=== PATIENT | female | born 1950 | race Caucasian/White ===

== ENCOUNTER 2016-09-14 15:00 | Inpatient (IN) | payer MEDICARE, BC ==
[~2016-09-14] VITALS: Ht 157.5 cm; Wt 129.1 kg
--- NOTE | ~2016-09-14 | DS ---
PATIENT'S NAME: GLENDALEMAHESHHY Kavon [facility] AGE: 65 Y [address] ROOM: [place] [id number] LOCATION: [facility] ADMIT DATE: 09/26/2016 Discharge Summary DISCHARGE DATE: 09/28/2016 FAMILY PHYSICIAN: Juan Manuel Garrett MD ATTENDING PHYSICIAN: aTlib Melchor PRIMARY DIAGNOSIS: Degenerative joint disease of the left knee. SECONDARY DIAGNOSES: 1. Asthma. 2. Chronic bronchitis. 3. Chronic venous insufficiency. 4. Diabetes mellitus type 2. 5. Hypertension. 6. Hyperlipidemia. 7. Chronic kidney disease, stage 3. 8. History of breast cancer. PROCEDURE PERFORMED: Left total knee arthroplasty. HISTORY: The patient is a 65-year-old female, who presents with advanced left knee degenerative joint disease and associated severely compromised activities of daily living. The patient has decided to proceed with total knee arthroplasty after having been thoroughly counseled regarding the risks, benefits, limitations, and alternatives. Please refer to the outpatient clinic notes and admission history and physical for this patient. HOSPITAL COURSE: The patient underwent a left total knee arthroplasty on 09/26/2016 without complications. Spinal anesthesia plus adductor canal block plus periarticular local anesthesia was utilized. The patient received 24 hours of perioperative prophylactic antibiotics and remained hemodynamically stable, neurovascularly intact throughout the entire hospital course. The postoperative prophylactic deep venous thrombosis prophylaxis consisted of Xarelto, early mobilization, and pneumatic compression devices. Daily physical therapy for gait training, transfer training, range of motion and quadriceps isometric exercises were received. The patient progressed well in physical therapy. On the date of discharge, 09/28/2016, the incision at the knee was healing well and showed no signs of infection. DISPOSITION: Home. DISCHARGE ACTIVITY: The patient is to bear weight as tolerated with range of motion and quadriceps isometric exercises as instructed. She is to hold ROM until her follow-up appointment. The operative extremity is to be elevated at least 90% of the day. There is to be sterile 4x4 gauze dressings to the incision daily. Dr. Melchor is to be notified PATIENT'S NAME: GLENDALEMAHESHHY Kavon [facility] AGE: 65 Y [address] ROOM: [address] [address] LOCATION: [facility] ADMIT DATE: 09/26/2016 Discharge Summary DISCHARGE DATE: 09/28/2016 FAMILY PHYSICIAN: Juan Manuel Garrett MD ATTENDING PHYSICIAN: Talib Melchor if there is any increased pain, fevers, chills, erythema, or drainage. DISCHARGE MEDICATIONS: 1. Xarelto 10 mg 1 tablet p.o. daily for 12 days for postoperative DVT prophylaxis. 2. Hydromorphone 2 mg 1 to 2 tablets p.o. every 4 hours p.r.n. for pain. The patient was then instructed to continue all her other preadmission medications as instructed by her Internal Medicine doctor. FOLLOWUP: Followup appointment is to be 10/03/[address] Melchor's office for her initial postoperative evaluation with x-rays of her knee at that time. EZEQUIEL UPTON PA-C FOR TALIB MELCHOR MD SMW/modl /[id number] d: 10/04/16 0242 t: 10/23/16 2140, DISCHARGE SUMMARY
--- NOTE | ~2016-09-14 | OR ---
PATIENT'S NAME: MAHESH KIMBROUGHHY Kavon [facility] AGE: 65 Y [address] ROOM: [place] [address] LOCATION: [facility] ADMIT DATE: 09/26/2016 OR/Procedure Report DISCHARGE DATE: FAMILY PHYSICIAN: Juan Manuel Garrett MD ATTENDING PHYSICIAN: TALIB RDZ SURGEON: Talib Rdz MD ORTHO ASSISTANT: Davi Guerrero PA-C and Barrie Cardoso CST/GLOBAL MARKETING SPECIALIST. DATE OF PROCEDURE: 09/26/2016 PRE-OP DIAGNOSIS: 1. Degenerative joint disease, left knee. 2. Obesity (5 feet 2 inches tall and 130 kg). POST-OP DIAGNOSIS: 1. Degenerative joint disease left knee. 2. Obesity (5 feet 2 inches tall and 130 kg). OPERATION: Left total knee arthroplasty with computer navigation. ANESTHESIA: Spinal anesthesia plus adductor canal block plus periarticular local anesthesia (ropivacaine with epinephrine and Toradol). ESTIMATED BLOOD LOSS: Less than 10 mL. DRAIN: None. SPECIMEN: None. COMPLICATIONS: None. IMPLANT SYSTEM: Stacy Triathlon: 1. Size 3 left posterior stabilized femoral component. 2. Size 2 [place] modular tibial baseplate. 3. 9 mm posterior stabilized size 2 X3 tibial polyethylene insert. 4. 29 mm oval X3 patella component (triple pegged). INDICATIONS FOR SURGERY: Nicolette Kimbrough is a 65-year-old female who presents with advanced left knee degenerative joint disease and associated severely compromised activities of daily living. The patient has decided to proceed with knee replacement after having been thoroughly counseled regarding the associated risks, benefits, and limitations. We have specifically reviewed the risks and implications of infection, deep venous thrombosis, pulmonary embolism, mortality, neurovascular complications, blood transfusion (and associated potential for disease transmission or transfusion reaction), PATIENT'S NAME: EMILIANA [facility] AGE: 65 Y [address] ROOM: [place] [address] LOCATION: [facility] ADMIT DATE: 09/26/2016 OR/Procedure Report DISCHARGE DATE: FAMILY PHYSICIAN: Juan Manuel Garrett MD ATTENDING PHYSICIAN: TALIB RDZ stiffness, instability, mechanical deterioration of the components (due to wear and or loosening), and the potential need for revision. We have also emphasized the importance of active involvement and compliance with post- operative physical therapy as a means of optimizing range of motion and functional recovery. Informed consent has been granted. DESCRIPTION OF PROCEDURE: The patient was positioned supine after administration of anesthesia and prophylactic antibiotics. A well-padded pneumatic tourniquet was placed around the left proximal thigh, and the left lower extremity was prepped and draped with vigilant sterile technique. The patient's name as well as the intended operative side and procedure were confirmed with a verbal time-out involving myself, the circulating nurse, the scrub nurse, and the anesthesiologist. Examination under anesthesia demonstrated no active skin lesions or masses. There were well-healed inferomedial and inferolateral arthroscopy portal scars. There was a very large soft tissue envelope surrounding the distal thigh and knee. There were no active skin lesions or masses. There was a moderate effusion. There was no erythema. There was no abnormal warmth. Range of motion under anesthesia was from full extension to 120 degrees of flexion. There was no ligamentous insufficiency. The left lower extremity was elevated and exsanguinated with an Esmarch wrap, and the pneumatic tourniquet was inflated to 300mmHg. The knee was approached through a longitudinal midline incision. A medial parapatellar arthrotomy was performed and the patella was everted. Examination of the joint space demonstrated a moderately increased amount of benign-appearing translucent synovial fluid. There was a 5 mm loose body at the posterior aspect of the medial compartment. There were approximately 4 inches of subcutaneous adipose tissue between the skin and the rectus femoris tendon. There was a fibrotic pre-patellar bursa. The cruciate ligaments were intact. There was a 2 cm diameter region of full-thickness articular cartilage loss at the central aspect of the patella. There were small osteophytes at the medial and lateral margins of the femoral trochlea. There was high-grade partial thickness articular cartilage loss throughout the medial half of the femoral trochlea. There were intermixed grade 3 and grade 4 degenerative changes throughout the majority of the medial femoral condyle. There was a 1 x 2 cm region of full- thickness articular cartilage loss at the medial aspect of the medial tibial plateau. There were mild grade 3 degenerative changes at the medial half of the lateral tibial plateau. There were grade 2 degenerative changes at the lateral femoral condyle. There was mild inner perimeter degenerative tearing at the medial and lateral meniscal remnants. PATIENT'S NAME: KIMBROUGH, NICOLETTE E [facility] AGE: 65 Y [address] ROOM: [id number] [place], [place] [address] LOCATION: [facility] ADMIT DATE: 09/26/2016 OR/Procedure Report DISCHARGE DATE: FAMILY PHYSICIAN: Juan Manuel Garrett MD ATTENDING PHYSICIAN: TALIB RDZ Remnants of the menisci and cruciate ligaments were excised. The [employer] computer navigation femoral tracker was pinned in place at the distal aspect of the femoral trochlea. Absence of motion between the femur and the tracking device was confirmed manually and visually. Femoral osseous landmarks were obtained in order to calibrate the computer navigation system. Landmarks included the center of rotation of the ipsilateral hip, the center-point of the distal femur, the femoral AP axis, 57 points on the medial femoral condyle articular surface, and 57 points on the lateral femoral condyle articular surface. The [employer] computer navigation system was subsequently utilized to position the distal femoral resection block such that the distal femoral resection was performed perfectly perpendicular to the femoral mechanical axis. The distal femoral resection was performed with a Howcast oscillating saw. The [employer] computer navigation tibial tracker was pinned in place at the anterior aspect of the tibial plateau. Absence of motion between the tibia and the tracking device was confirmed manually and visually. Tibial osseous landmarks were obtained in order to calibrate the computer navigation system. Landmarks included the center-point of the tibial plateau, the AP tibial axis, 57 points on the medial tibial plateau articular surface, 57 points on the lateral tibial plateau articular surface, the medial malleolus, and the lateral malleolus. The [employer] computer navigation system was subsequently utilized to position the proximal tibial resection block such that the proximal tibial resection was performed perfectly perpendicular to the tibial mechanical axis. The proximal tibial resection was performed with a eDreams Edusoft Precision oscillating saw. Perpendicularity of the tibial resection with respect to the tibial shaft axis was reconfirmed by inserting a spacer- block attached to an extramedullary guide carolina. External rotation of the anterior and posterior femoral resections was set parallel to the epicondylar axis and carefully adjusted in order to create a rectangular flexion gap. The box resection was performed with a reciprocating saw. Anterior and posterior chamfer resections were performed with the oscillating saw. Posterior condyle osteophytes were excised with an osteotome. All other osteophytes were excised with a rongeur. Resection of all remnants of the menisci was reconfirmed. Flexion and extension gaps were confirmed to be symmetric and well balanced with a spacer-block technique. The patella resection was performed with an oscillating saw such that the composite thickness of the reconstructed patella was equivalent to the thickness of the mohegan patella. Patella tracking was optimal, and there was no need for a lateral retinacular release. All trial components were removed and all prepared osseous surfaces were thoroughly irrigated with pulsatile saline lavage and dried prior to cementing PATIENT'S NAME: NICOLETTE KIMBROUGH [facility] AGE: 65 Y [address] ROOM: [address] [address] LOCATION: [facility] ADMIT DATE: 09/26/2016 OR/Procedure Report DISCHARGE DATE: FAMILY PHYSICIAN: Juan Manuel Garrett MD ATTENDING PHYSICIAN: TALIB RDZ all three components in a single stage using eDreams Edusoft Simplex cement containing pre-mixed tobramycin. All extruded excess cement was removed. The entire joint space was thoroughly inspected and thoroughly irrigated with bacteriostatic pulsatile saline lavage to assure that there was no residual debris of any sort. Final range of motion was from full extension (with no passive hyperextension) degrees of extension to 130 degrees of flexion. Patella tracking was reconfirmed to be optimal. There was very good anteroposterior stability at 90 degrees of flexion. There was 0 mm of medial lift-off to valgus stress in full extension. There was 1 mm of lateral lift-off to varus stress in full extension. The arthrotomy was closed with multiple simple and [id number] interrupted #1 Vicryl. Subcutaneous tissues were thoroughly re-irrigated with bacteriostatic pulsatile saline lavage. Subcutaneous tissues were re- approximated with simple buried interrupted #0 Vicryl sutures. The skin was closed with simple buried interrupted 2-0 Vicryl sutures followed by surgical priyanka. The dressing consisted of Xeroform gauze, 4x4 gauze, ABD pads and two 6-inch Brock Wraps. There were no intra-operative complications. It should be noted that the physician's paralegal assistant played an active, integral role throughout this entire operation. By providing expert retraction, they greatly facilitated and expedited safe and effective exposure of the distal femur, proximal tibia and patella for preparation and implantation of the components. They were also actively involved in the patient's positioning, prepping and draping, as well as wound closure. MD KAREEN SAEED/genie /[id number] d: 09/26/165 t: 10/02/16 0054, OPERATIVE SUMMARY
[~2016-09-14 15:00] MED LIST: ACTOS45 MG PO; BECONASE AQ25 GM NS; CALTRATE 600 WI1 TAB PO; COZAAR100 MG PO; NEURONTIN300 MG PO; NORVASC5 MG PO; PRAVACHOL40 MG PO; PRILOSEC20 MG PO; THERAGRAN-M1 TAB PO; ULTRAM50 MG PO; ZYLOPRIM300 MG PO
[2016-09-23] MEDS ORDERED: LASIX20 MG PO (15:36)
--- NOTE | 2016-09-26 18:46 | NUR ---
Significant Event: Pt returned from PACU, Spinal wore off & able to wiggle toes, CSM's are WNL, Pt pain well controlled with Dilaudid 2mg last at 1545. Pt up to BSC 1 assist, Pt hard IV stick and Mid line inserted before OR to L) upper arm, IVF @ 75ml/hr, only taking sips, Lung clear, murmur noted. Follow up: Pain control, BS was 163 on mild SS.
--- NOTE | 2016-09-27 05:10 | NUR ---
Shift Summary: Patient ambulates with one assist. Voiding without difficulty. Tolerating ADA diet well. On Accuchecks AC&HS with mild SS. BS at HS was 267 with 4 units given. Will give a Dilaudid 2mg PO with scheduled tylenol. Patient has a power-glide IV to left upper arm. Old right mastectomy. No B/P's/sticks to right arm. Patient is a possible discharge home this afternoon.
--- NOTE | 2016-09-27 09:15 | NUR ---
Introduced self/role to patient, lives in [place] with her Polina. She has all the DME she thinks she will need. Denied any barriers to going home or at home. Added my name to her marker board. She plans to go home tomorrow.
--- NOTE | 2016-09-27 17:43 | NUR ---
PATIETNT alert and oriented x 3. VSS, urinating well and tolerating food. Accucheck at 1700 was 156 2 un of insulin given. AC&HS with moderate SS Last Dilaudid given at 1600. Unable to give tylenol as exceeded 4000mg in 24 hr. Ambulated in room and navarrete, one assist. Mastectomy on right BP on left side.
--- NOTE | 2016-09-27 19:04 | NUR ---
PATIENT DOING WELL. DILAUDID LAST AT 1600. CSM ADEQUATE. JAYY WRAP D/I. LEFT ARM POWER GLIDE IV. ROUTINE ULTRAM. ACCUCHECK AT 1700-156. PLANS ON DISMISSAL TOMORROW.
--- NOTE | 2016-09-28 03:54 | NUR ---
Significant Event: Alert and oriented X3. Vital signs stable. Dressing to L) knee is CDI. CSM WNL. Up with 1 person assist, gait belt and walker. Ice to knee. Elevated. Dilaudid for pain last at 0235. Accucheck at HS was 239. Midline IV SL'd to LUE. Follow up: Plans to discharge home today.
[2016-09-28] MEDS ORDERED: TYLENOL EXTRA500 MG PO (12:03)
[2016-09-28] MEDS ORDERED: COLACE100 MG PO (12:04)
[2016-09-28] MEDS ORDERED: MIRALAX17 GM PO (12:07)
[2016-09-28] MEDS ORDERED: XARELTO10 MG PO (12:09)
[2016-09-28] MEDS ORDERED: DILAUDID 2MG(HYD2 MG PO (12:12)
--- NOTE | 2016-09-28 15:15 | NUR ---
Patient dismissed to home with . Patient was wheeled to the front door where met . Patient education was given regarding new and old medication, wound care, pain control. Patient was given information regarding follow up appointment.
--- NOTE | 2016-09-28 15:40 | NUR ---
patient dismissed to home, met goals. csm adequate. rx slip, return appt card, new meds reveiwed, return to clinic appt, wound/dressing care, all reviewed with patient. kay russell and dvt precautions all reviewed with patient. patient verbalizes understanding. to front door with tech and belongings to meet .
== END 2016-09-28 14:00 | disposition disaster alternative care site (69) | DRG 470 ==
LOC: G3N 09-26 10:11
PROVIDERS: ADMIT Orthopaedic Surgery
PROC: 0SRD0J9 Replacement of Left Knee Joint with Synthetic Substitute, Cemented, Open Approach (ICD-10-PCS; principal; 2016-09-26)
DX: M17.12 Unilateral primary osteoarthritis, left knee (principal); E11.22 Type 2 diabetes mellitus with diabetic chronic kidney disease; N18.3 Chronic kidney disease, stage 3 (moderate); Z68.43 Body mass index [BMI] 50.0-59.9, adult; J45.909 Unspecified asthma, uncomplicated; J42 Unspecified chronic bronchitis; I12.9 Hypertensive chronic kidney disease with stage 1 through stage 4 chronic kidney disease, or unspecified chronic kidney disease; I89.0 Lymphedema, not elsewhere classified; I87.2 Venous insufficiency (chronic) (peripheral); E78.5 Hyperlipidemia, unspecified; E66.01 Morbid (severe) obesity due to excess calories; Z88.8 Allergy status to other drugs, medicaments and biological substances; Z85.3 Personal history of malignant neoplasm of breast
CPT/HCPCS: C1713; C1751; C1776; J0690; J1885; J2001; J2250; J2795; J7030

== ENCOUNTER → 2016-09-15 | Outpatient (CLI) | payer MEDICARE, BC ==
[~2016-09-15] MED LIST changes: +COLACE100 MG PO; +DILAUDID 2MG(HYD2 MG PO; +LASIX20 MG PO; +MIRALAX17 GM PO; +TYLENOL EXTRA500 MG PO; +XARELTO10 MG PO
== END | disposition disaster alternative care site (69) ==
LOC: GNJRC 10:19
DX: Z01.812 Encounter for preprocedural laboratory examination (principal); M17.12 Unilateral primary osteoarthritis, left knee

== ENCOUNTER → 2016-11-23 | Outpatient (CLI) | payer MEDICARE, BC | LOC: LGSMG 09:32 | DX: I12.9 Hypertensive chronic kidney disease with stage 1 through stage 4 chronic kidney disease, or unspecified chronic kidney disease (principal); E11.22 Type 2 diabetes mellitus with diabetic chronic kidney disease; N18.4 Chronic kidney disease, stage 4 (severe); R80.9 Proteinuria, unspecified ==